=== PATIENT | male | born 1950 | race Caucasian/White ===

== ENCOUNTER 2021-12-19 06:42 | Inpatient (IN) ==
[2021-12-19] MEDS ORDERED: CeFAZolin Syr 2,000MG/20 ML 2,000 MG/20 ML SYRINGE IVPB ONE (06:55)
[2021-12-19] MEDS ORDERED: Vancomycin 1,500 MG/265 ML IV.SOLN IVPB ONE ×2 (06:55→20:00)
[2021-12-19] MEDS ORDERED: Bupivacaine-MPF 0.25% 10 ML VIAL ONE (06:55)
[2021-12-19] MEDS ORDERED: Heparin 1,000 UNITS/500 mL 1,500 ML ONE (06:56)
[2021-12-19] MEDS ORDERED: Protamine Sulfate 50 MG/5 ML VIAL IVP ONE (06:57)
[2021-12-19] MEDS ORDERED: Acetaminophen IV 1,000 MG/100 ML BAG IVPB ONE (07:00)
[2021-12-19] MEDS ORDERED: Ketorolac 30 MG/ML VIAL IVP PRN (07:00)
[2021-12-19] MEDS ORDERED: *HR* Labetalol 20 MG/4 ML SYRINGE IVP PRN ×2 (07:00→15:47)
[2021-12-19] MEDS ORDERED: *HR* HYDROmorphone 2 MG TABLET PO PRN (07:00)
[2021-12-19] MEDS ORDERED: Famotidine 20 MG/2 ML VIAL IVP ONE (07:00)
[2021-12-19] MEDS ORDERED: Ringers Solution, Lactated 1,000 ML IVC SCH (07:00)
[2021-12-19] MEDS ORDERED: *HR* HYDROmorphone (PF) 1 MG/ML SYRINGE IVP PRN (07:00)
[2021-12-19] MEDS ORDERED: *HR* OxyCODONE Immed Rel 5 MG TABLET PO PRN (07:00)
[2021-12-19] MEDS ORDERED: *HR* FentaNYL (PF) 100 MCG/2 ML VIAL ONE ×3 (07:05→10:06)
[2021-12-19] MEDS ORDERED: *HR* Midazolam HCl 2 MG/2 ML VIAL ONE (07:05)
[2021-12-19] MEDS ORDERED: *HR* Propofol 200 MG/20 ML VIAL IVP ONE (07:06)
[2021-12-19] MEDS ORDERED: *HR* Rocuronium Bromide 50 MG/5 ML VIAL ONE ×2 (07:09→09:49)
[2021-12-19] MEDS ORDERED: Lidocaine -MPF 2% 2 ML VIAL ONE (07:09)
[2021-12-19] MEDS ORDERED: Ondansetron 4 MG/2 ML VIAL ONE (07:09)
[2021-12-19] MEDS ORDERED: Lidocaine HCL 4 ML Topical Solution (Laryng-O-Jet Kit Sterile Pak) TP ONE (07:11)
[2021-12-19] MEDS ORDERED: *HR* Vasopressin 20 UNIT/ML VIAL ONE (07:23)
[2021-12-19] MEDS ORDERED: *HR* Phenylephrine 10 MG/ML VIAL ONE (07:24)
[2021-12-19] MEDS ORDERED: Heparin 1,000 UNITS/500 mL 500 ML ONE (07:27)
[2021-12-19] MEDS ORDERED: Vancomycin 1,000 MG, Sodium Chloride IRRigation 1,000 ML IR ONE (07:45)
[2021-12-19] MEDS ORDERED: EPHEDrine 50 MG/ML VIAL ONE (09:01)
[2021-12-19] MEDS ORDERED: Sugammadex Sodium 200 MG/2 ML VIAL IV ONE (11:46)
[2021-12-19] MEDS ORDERED: *HR* HYDROMORPHONE 2 MG/ML VIAL ONE (11:54)
[2021-12-19] MEDS ORDERED: Acetaminophen 325 MG TABLET PO PRN (15:47)
[2021-12-19] MEDS ORDERED: Naloxone 0.4 MG/ML INJ IVP PRN (15:47)
[2021-12-19] MEDS ORDERED: Ondansetron 4 MG/2 ML VIAL IVP PRN (15:47)
[2021-12-19] MEDS ORDERED: 0.9 % Sodium Chloride 1,000 ML IVC SCH (15:47)
[2021-12-19] MEDS: CeFAZolin 2 GM/120 ML BAG IVPB SCH (16:23)
[2021-12-19] MEDS: *HR* Metoprolol 5 MG/5 ML VIAL IVP SCH (18:29)
[2021-12-20] MEDS: *HR* HYDROcodone/Acet 5/325 mg TABLET PO PRN ×2 (00:15→06:04)
[2021-12-20] MEDS: CeFAZolin 2 GM/120 ML BAG IVPB SCH (00:16)
[2021-12-20] MEDS: *HR* Metoprolol 5 MG/5 ML VIAL IVP SCH ×2 (00:16→06:04)
[2021-12-20] MEDS: *HR* OxyCODONE Immed Rel 5 MG TABLET PO PRN ×2 (03:01→09:18)
[2021-12-20 03:48] LABS: Basophils % 0.2 %; Eosinophils % 0.1 %; Hemoglobin 11.8 g/dL (12.9-16.9); Immature Granulocytes % 0.5 % (0-4); Lymphocytes # 0.7 K/mcL (0.6-4.6); Mean Corpuscular HGB Conc 32.8 g/dL (31.6-35.5); Mean Corpuscular Hemoglobin 30.8 pg (28.0-33.3); Mean Platelet Volume 11.7 fL (9.4-12.4); Neutrophils # 8.8 K/mcL (1.6-8.9); Platelet Count 151 K/mcL (140-400); Red Blood Count 3.83 M/mcL (4.19-5.50); Red Cell Distribution Width 12.9 % (11.5-14.5); Segmented Neutrophils % 83.2 %; White Blood Count 10.6 K/mcL (4.3-11.1)
[2021-12-20 03:59] LABS: BUN/Creatinine Ratio 17 (6-26); Blood Urea Nitrogen 17 mg/dL (8-23); Calcium 8.4 mg/dL (8.6-10.3); Carbon Dioxide 24 mEq/L (23-29); Chloride 107 mEq/L (98-107); Glucose 119 mg/dL (70-105); Osmolality,Calculated 291 (280-300); Potassium 4.3 mEq/L (3.5-5.1); Sodium 139 mEq/L (136-145); eGFR For African Americans > 60 (> 60); eGFR For Non-African Americans > 60 (> 60)
[2021-12-20] MEDS ORDERED: *HR* Heparin 5,000 UNIT/ML VIAL SQ SCH ×2 (06:00)
[2021-12-20 07:56] VITALS: BP 116/60; PULSE 71; TEMP 97.5; O2SAT 93
== END 2021-12-20 11:05 | disposition home or self-care (01) | DRG 271 ==
LOC: SAMDAY 06:42 → 2NNU 15:49
PROVIDERS: ADMIT Surgery; ATTEND Surgery